=== PATIENT | male | born 1990 | race Caucasian/White ===

== ENCOUNTER 2019-10-20 02:55 | Emergency (ER) | payer SELFPAY ==
[~2019-10-20] VITALS: Ht 185.4 cm; Wt 79.5 kg
[2019-10-20 02:58] VITALS: BP 173/101; TEMP 97.6
[2019-10-20 03:45] VITALS: PULSE 52
== END 2019-10-20 03:51 | disposition home or self-care (01) ==
LOC: COL.ER 02:55
DX: K02.9 Dental caries, unspecified (principal)